=== PATIENT | female | born 1975 | race Caucasian/White ===

== ENCOUNTER 2018-05-27 13:45 | Emergency (ER) | payer BC, SELFPAY ==
[2018-05-27 15:28] LABS: Bilirubin Negative (Negative); Blood, Urine Moderate (Negative); Clarity Slightly Cloudy (Clear); Glucose, Urine (Dipstick) Negative (Negative); Leukocyte Small (Negative); Nitrite Negative (Negative); Protein, Urine (Dipstick) Negative (Neg-Trace); Urobilinogen 0.2 mg/dL (0.2-1.0); pH, Urine 6.5 (5.0-9.0)
[2018-05-27 15:31] LABS: Bacteria/HPF 2+ HPF (None Seen); RBC/HPF 0-3 HPF (0-3)
[2018-05-27 16:15] LABS: #Basophils 0.1 thou/uL (0.0-0.2); #Eosinphils 0.1 thou/uL (0.0-0.7); #Lymphocytes 3.6 thou/uL (1.20-3.40); #Monocytes 0.8 thou/uL (0.11-0.59); #Neutrophils 8.6 thou/uL (1.40-6.50); %Basophils 0.9 % (0.0-1.0); %Eosinophils 1.1 % (0.0-10.0); %Lymphocytes 27.1 % (21.0-51.0); %Monocytes 6.3 % (0.0-10.0); %Neutrophils 64.6 % (42.0-75.0); Hemoglobin 13.1 g/dL (12.0-16.0); Mean Corpuscular HGB CONC 31.5 g/dL (32.0-36.0); Mean Corpuscular Hemoglobin 29.6 pg (27.0-31.0); Mean Corpuscular Volume 93.8 fL (78.0-98.0); Mean Platelet Volume 7.2 fL (7.4-10.4); Platelet Count 245 thou/uL (130-400); RBC Distribution Width 12.6 % (11.5-14.5); Red Blood Cell (RBC) Count 4.44 mill/uL (4.20-5.40); White Blood Cell (WBC) Count 13.4 thou/uL (4.8-10.8)
--- NOTE | 2018-05-27 16:18 | RAD ---
2 VIEW CHEST: Date: 05/27/18 INDICATION: Sepsis. FINDINGS: There is a patchy right basilar density. Left lung is clear. Cardiac silhouette is of normal volume. There is osseous degenerative change. IMPRESSION: Patchy right basilar opacity which may be related to pneumonia in the correct clinical context. Recom mend imaging follow-up upon resolution of acute symptoms and completion of treatment regimen, to conf irm resolution. POS: [place]
[2018-05-27 16:28] LABS: ALT (SGPT) 15 U/L (8-55); AST (SGOT) 14 U/L (5-34); Alkaline Phosphatase 72 U/L (40-150); Anion Gap 14 mmol/L (10-20); BUN (Urea Nitrogen) 11 mg/dL (7.0-18.7); Bilirubin, Total 0.3 mg/dL (0.2-1.2); Calc. Creatinine Clearance 0 mL/min (70-130); Calcium 9.3 mg/dL (7.8-10.44); Carbon Dioxide 25 mmol/L (22-29); Chloride 104 mmol/L (98-107); Estimated GFR-MDRD 88; Globulin 3.4 g/dL (2.4-3.5); Glucose 90 mg/dL (70-105); Potassium 3.6 mmol/L (3.5-5.1); Protein, Total 7.4 g/dL (6.0-8.3); Sodium 139 mmol/L (136-145)
[2018-05-27] MEDS ORDERED: Bacitracin Zinc 1 Packet ONE (18:16)
== END 2018-05-27 18:26 | disposition home or self-care (01) ==
LOC: SCSER 13:45
DX: J18.9 Pneumonia, unspecified organism (principal); R42 Dizziness and giddiness; L03.011 Cellulitis of right finger; E66.9 Obesity, unspecified
CPT/HCPCS: 10060; 36415; 71046; 80053; 81003; 81015; 83605; 85025; 87040; 87086; 87804; 96365; J1956